=== PATIENT | male | born 2000 | race Caucasian/White ===

== ENCOUNTER 2021-04-07 10:30 | Emergency (ER) | payer OTHER ==
--- NOTE | 2021-04-07 12:48 | RAD REPORT ---
EXAM DESCRIPTION: RAD - Chest Pa And Lat (2 Views) - 04/07/2021 12:39 pm CLINICAL HISTORY: COUGH COMPARISON: No comparisons FINDINGS: Patchy airspace disease within the lungs bilaterally. The heart size is within normal limi ts.No acute osseous abnormality. No significant pleural effusions or pneumothorax. IMPRESSION: Bilateral patchy airspace disease concerning for multifocal pneumonia, including Covid-1 9. Consider follow-up radiography to ensure resolution in 6 weeks to 3 months.
[2021-04-07 14:24] LABS: Absolute Lymphocytes (CBC) 1.2 K/uL (0.7-4.9); Basophils % 0.5 % (0-1.3); Lymphocytes % 32.6 % (15.3-44.8); MPV 7.9 fL (7.6-11.3); RBC Red Blood Cell Count 5.18 M/uL (4.33-5.43)
[2021-04-07] MEDS ORDERED: ONDANSETRON 4 MG/2 ML VIAL ONE (14:45)
--- NOTE | 2021-04-07 14:52 | RAD REPORT ---
EXAM DESCRIPTION: CT - Chest For Pe Angio - 04/07/2021 2:30 pm CLINICAL HISTORY: Chest pain;Cough;Dyspnea COMPARISON: No comparisons FINDINGS: Chest Wall: No suspicious thyroid nodules or pathologic lymphadenopathy. Lungs: Patchy bilateral ground-glass and nodular airspace opacities. Pleura: No significant effusions or pneumothorax. Mediastinum/nae: No pathologic lymphadenopathy. Pulmonary arteries/Aorta: No filling defect identified. No aortic aneurysm. Heart: No significant pericardial effusion. Normal heart size. Upper abdomen: No acute abnormality. Hepatic steatosis. Bones: No acute abnormality. IMPRESSION: Negative for pulmonary embolism. Patchy bilateral airspace disease most likely represen ting multifocal pneumonia, including Covid-19.
[2021-04-07 14:58] LABS: BUN Blood Urea Nitrogen 12 mg/dL (7-18); Bicarbonate 29 mmol/L (21-32); Ferritin 551.6 ng/mL (26-388); Glucose Level 91 mg/dL (74-106); Potassium 4.2 mmol/L (3.5-5.1); Sodium Level 137 mmol/L (136-145); Troponin (Emerg Dept Use Only) < 0.02 ng/mL (0.0-0.045)
--- NOTE | 2021-04-07 15:06 | ER ---
Nurse's Notes [facility] Name: Adin Bryant Age: 21 yrs Sex: Male : 2000 Arrival Date: 04/07/2021 Time: 10:33 Bed 26 Private MD: Diagnosis: Coronavirus infection, unspecified;Viral pneumonia, unspecified Presentation: 04/07 11:52 Chief complaint: Patient states: SOB, dry throat, pain with deep breath, and coughing kg up blood, fever 04/06. Pt Son had COVID last week, pt got sick Friday 03/30. Pt was feeling better fever free for two days then started feeling bad again yesterday. Coronavirus screen: Client denies travel out of the [place] in the last 14 days. At this time, unable to obtain information related to travel outside the [place] Client presents with at least one sign or symptom that may indicate coronavirus-19. Standard/surgical mask placed on the client. Provider contacted for isolation considerations. Ebola Screen: Patient negative for fever greater than or equal to 101.5 degrees Fahrenheit, and additional compatible Ebola Virus Disease symptoms Patient denies exposure to infectious person. Patient denies travel to an Ebola-affected area in the 21 days before illness onset. No symptoms or risks identified at this time. Initial Sepsis Screen: Does the patient meet any 2 criteria? No. Patient's initial sepsis screen is negative. Does the patient have a suspected source of infection? No. Patient's initial sepsis screen is negative. Risk Assessment: Do you want to hurt yourself or someone else? Patient reports no desire to harm self or others. Onset of symptoms was April 06, 2021. 11:52 Method Of Arrival: Ambulatory kg 11:52 Acuity: JESSICA 4 kg Triage Assessment: 11:55 General: Appears in no apparent distress. Behavior is calm, cooperative, appropriate kg for age, quiet. Pain: Complains of pain in chest Pain does not radiate. Pain currently is 5 out of 10 on a pain scale. at worst was 5 out of 10 on a pain scale. level that patient reports is acceptable is 3 out of 10 on a pain scale. Quality of pain is described as dull, Constant but has sharp bursts Pain began 1 day ago. Respiratory: Reports shortness of breath cough that is productive, Onset: The symptoms/episode began/occurred yesterday, the patient has mild shortness of breath. Historical: - Allergies: 11:55 No Known Allergies; kg - Home Meds: 11:55 None [Active]; kg - PMHx: 11:55 None; kg - PSHx: 11:55 None; kg - Immunization history:: Adult Immunizations not up to date, Client reports having NOT received the Covid vaccine. - Social history:: Smoking status: Reported history of juuling and/or vaping. Patient uses alcohol, occasionally. Screenin:39 Abuse screen: Denies threats or abuse. Nutritional screening: No deficits noted. tw2 Tuberculosis screening: No symptoms or risk factors identified. Fall Risk None identified. Assessment: 13:40 Reassessment: provider at bedside at this time. tw2 13:50 General: Appears in no apparent distress. well groomed, Behavior is cooperative, tw2 anxious. Pain: Denies pain. Neuro: Level of Consciousness is awake, alert, obeys commands, Oriented to person, place, time, situation. Cardiovascular: Capillary refill < 3 seconds Patient's skin is warm and dry. Rhythm is regular. Respiratory: Airway is patent Respiratory effort is even, unlabored, Breath sounds are diminished. Respiratory: Reports shortness of breath at rest on exertion cough that is non-productive, persistent. GI: No signs and/or symptoms were reported involving the gastrointestinal system. : No signs and/or symptoms were reported regarding the genitourinary system. Musculoskeletal: Range of motion: intact in all extremities. 15:15 Reassessment: Patient appears in no apparent distress at this time. No changes from tw2 previously documented assessment. Patient and/or family updated on plan of care and expected duration. Pain level reassessed. Patient is alert, oriented x 3, equal unlabored respirations, skin warm/dry/pink. Vital Signs: 11:52 BP 131 / 87; Pulse 101; Resp 20; Temp 99.7(O); Pulse Ox 99% on R/A; Weight 105.69 kg kg (M); Height 5 ft. 8 in. (172.72 cm) (R); Pain 5/10; 13:55 BP 136 / 69; Pulse 107; Resp 17; Pulse Ox 99% on R/A; tw2 15:09 BP 122 / 63; Pulse 101; Resp 17; Pulse Ox 98% on R/A; tw2 11:52 Body Mass Index 35.43 (105.69 kg, 172.72 cm) kg ED Course: 10:33 Patient arrived in ED. am2 11:55 Triage completed. kg 12:39 XRAY Chest Pa And Lat (2 Views) In Process Unspecified. EDMS 13:35 [facility] kb 13:35 Lionel Hou MD is Attending Physician. kb 13:35 Bed in low position. Call light in reach. Pulse ox on. NIBP on. tw2 13:39 Joy Washington, RN is Primary Nurse. tw2 13:39 Arm band placed on. tw2 13:50 Inserted saline lock: 20 gauge in left antecubital area, using aseptic technique. Blood tw2 collected. 13:54 Patient maintains SpO2 saturation greater than 95% on room air. tw2 14:03 EKG done, by ED staff, reviewed by Lu EDDY. mb4 14:31 CT Chest For PE Angio In Process Unspecified. EDMS 15:15 No provider procedures requiring assistance completed. IV discontinued, intact, tw2 bleeding controlled, No redness/swelling at site. Pressure dressing applied. Administered Medications: 14:24 Drug: Zofran (Ondansetron) 4 mg Route: IVP; Site: left antecubital; tw2 15:10 Follow up: Response: No adverse reaction; Nausea is decreased tw2 Outcome: 15:05 Discharge ordered by . kb 15:15 Discharged to home ambulatory. tw2 15:15 Condition: stable 15:15 Discharge instructions given to patient, Instructed on discharge instructions, follow up and referral plans. Demonstrated understanding of instructions, follow-up care. 15:15 Patient left the ED. tw2 Signatures: Dispatcher [employer] EDMS Lu Petersen FNP-C FNP-Ckb Wise, Tara, RN RN tw2 Ida Morgan am2 Jenny De Leon mb4 Romelia Carter RN RN kg
--- NOTE | 2021-04-07 15:06 | EDPHYS ---
Physician Documentation [facility] Name: Adin Bryant Age: 21 yrs Sex: Male : 2000 Arrival Date: 04/07/2021 Time: 10:33 Bed 26 Private MD: ED Physician Lionel oHu HPI: 04/07 16:04 This 21 yrs old Male presents to ER via Ambulatory with complaints of Fever, kb Shortness Of Breath, Cough, Dizziness, Nausea. 16:03 Severity of symptoms: At their worst the symptoms were moderate, in the emergency kb department the symptoms are unchanged. Associated signs and symptoms: Pertinent positives: chest pain, tightness, fever, Pertinent negatives: diarrhea, ear ache, nausea, rhinorrhea, sore throat, vomiting. The patient has not experienced similar symptoms in the past. The patient has not recently seen a physician. 16:04 The patient or guardian reports cough, that is intermittent, described as moderate, kb with no sputum, difficulty breathing, flu symptoms, low-grade fever, myalgias. Onset: The symptoms/episode began/occurred 8 day(s) ago. Modifying factors: The symptoms are alleviated by nothing, the symptoms are aggravated by nothing. Patient states his son was diagnosed with Covid. Shortly after that patient developed symptoms of Covid. States he was getting better and was symptom-free for 2 days but woke up yesterday with running fever again. Today he was coughing up blood which prompted his ER visit. Historical: - Allergies: 11:55 No Known Allergies; kg - Home Meds: 11:55 None [Active]; kg - PMHx: 11:55 None; kg - PSHx: 11:55 None; kg - Immunization history:: Adult Immunizations not up to date, Client reports having NOT received the Covid vaccine. - Social history:: Smoking status: Reported history of juuling and/or vaping. Patient uses alcohol, occasionally. ROS: 16:03 Abdomen/GI: Negative for abdominal pain, nausea, vomiting, diarrhea, and constipation. kb 16:03 Constitutional: Positive for body aches, chills, fatigue, fever, malaise. 16:03 Cardiovascular: Positive for chest pain, Negative for edema, orthopnea, palpitations, paroxysmal nocturnal dyspnea. 16:03 Respiratory: Positive for cough, hemoptysis, shortness of breath. 16:03 All other systems are negative. Exam: 16:03 Constitutional: This is a well developed, well nourished patient who is awake, alert, kb and in no acute distress. Head/Face: Normocephalic, atraumatic. ENT: Moist Mucous membranes Cardiovascular: Regular rate and rhythm with a normal S1 and S2. No gallops, murmurs, or rubs. No pulse deficits. Respiratory: Respirations even and unlabored. No increased work of breathing, no retractions or nasal flaring. Abdomen/GI: Soft, non-tender. No distention Skin: Warm, dry with normal turgor. Normal color. MS/ Extremity: Pulses equal, no cyanosis. Neurovascular intact. Full, normal range of motion. Neuro: Awake and alert, GCS 15, oriented to person, place, time, and situation. Moves all extremities. Normal gait. Psych: Awake, alert, with orientation to person, place and time. Behavior, mood, and affect are within normal limits. Vital Signs: 11:52 BP 131 / 87; Pulse 101; Resp 20; Temp 99.7(O); Pulse Ox 99% on R/A; Weight 105.69 kg kg (M); Height 5 ft. 8 in. (172.72 cm) (R); Pain 5/10; 13:55 BP 136 / 69; Pulse 107; Resp 17; Pulse Ox 99% on R/A; tw2 15:09 BP 122 / 63; Pulse 101; Resp 17; Pulse Ox 98% on R/A; tw2 11:52 Body Mass Index 35.43 (105.69 kg, 172.72 cm) kg MDM: 13:35 Patient medically screened. kb 16:02 Data reviewed: vital signs, nurses notes. Data interpreted: Pulse oximetry: on room air kb is 98 %. Interpretation: normal. Counseling: I had a detailed discussion with the patient and/or guardian regarding: the historical points, exam findings, and any diagnostic results supporting the discharge/admit diagnosis, lab results, radiology results, the need for outpatient follow up, a family practitioner, to return to the emergency department if symptoms worsen or persist or if there are any questions or concerns that arise at home. ED course: All diagnostics including EKG discussed with Dr Hou. Recommends outpatient treatment. 04/07 13:44 Order name: CBC with Diff; Complete Time: 14:38 kb 04/07 13:44 Order name: Basic Metabolic Panel; Complete Time: 15:01 kb 04/07 13:44 Order name: Ferritin; Complete Time: 15:01 kb 04/07 13:44 Order name: CRP; Complete Time: 15:01 kb 04/07 13:44 Order name: Troponin (emerg Dept Use Only); Complete Time: 15:01 kb 04/07 12:16 Order name: XRAY Chest Pa And Lat (2 Views); Complete Time: 13:35 kg 04/07 13:44 Order name: IV Start; Complete Time: 13:54 kb 04/07 13:44 Order name: CT Chest For PE Angio; Complete Time: 14:53 kb 04/07 13:44 Order name: EKG; Complete Time: 13:45 kb 04/07 13:44 Order name: EKG - Nurse/Tech; Complete Time: 14:03 kb Administered Medications: 14:24 Drug: Zofran (Ondansetron) 4 mg Route: IVP; Site: left antecubital; tw2 15:10 Follow up: Response: No adverse reaction; Nausea is decreased tw2 Disposition: 16:41 Co-signature as Attending Physician, Lionel Hou MD I agree with the assessment and rn plan of care. Attestation: The patient's history, exam findings, diagnostics, and a summary of any interventions or procedures was reviewed in detail with Lu EDDY. Disposition Summary: 04/07/21 15:05 Discharge Ordered Location: Home kb Condition: Stable kb Diagnosis - Coronavirus infection, unspecified kb - Viral pneumonia, unspecified kb Followup: kb - With: Emergency Department - When: As needed - Reason: Worsening of condition Followup: kb - With: Private Physician - When: 2 - 3 days - Reason: Recheck today's complaints, Continuance of care, Re-evaluation by your physician Discharge Instructions: - Discharge Summary Sheet kb - Viral Respiratory Infection, [id number] kb - COVID-19 kb Forms: - Medication Reconciliation Form kb - Thank You Letter kb - Antibiotic Education kb - Prescription Opioid Use kb - Work release form tw2 Signatures: Dispatcher [employer] Lu Almanza FNP-C FNP-Lionel Schumacher MD MD rn Smirch, Shelby, RN RN ss Wise, Tara RN RN tw2 Romelia Carter RN RN kg Corrections: (The following items were deleted from the chart) 13:47 13:36 CORONAVIRUS+BRZ ordered. EDMS EDMS
--- NOTE | 2021-04-08 07:30 | EKG ---
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
[2021-04-08 11:34] VITALS: TEMP 99.7
[2021-04-08 11:37] VITALS: BP 122/63; O2SAT 98
== END 2021-04-07 15:15 | disposition home or self-care (01) ==
LOC: EDSEX 10:30 → ER 10:30
DX: U07.1 COVID-19 (principal); J12.82 Pneumonia due to coronavirus disease 2019
CPT/HCPCS: 93005; 85025; 80048; 36415; 82565; 84484; 82728; 86140; 71275; 71046; 96374; 99284; Q9967; J2405